=== PATIENT | female | born 1985 | race Caucasian/White ===

== ENCOUNTER 2023-04-15 17:36 | Emergency (ER) | payer MEDICAID, OTHER ==
[~2023-04-15] VITALS: Ht 170.2 cm; Wt 100.0 kg
[2023-04-15 17:50] VITALS: O2SAT 100
[2023-04-15] MEDS ORDERED: BENZ100C86 MT (19:54)
[2023-04-15 20:45] VITALS: BP 119/72; PULSE 74; RESP 18; TEMP 97.6
== END 2023-04-15 20:46 | disposition home or self-care (01) ==
LOC: ER 17:36
DX: J06.9 Acute upper respiratory infection, unspecified (principal); Z98.890 Other specified postprocedural states; Z98.51 Tubal ligation status
CPT/HCPCS: 71045; 99283